=== PATIENT | female | born 1995 | race Caucasian/White ===

== ENCOUNTER 2023-06-28 13:06 | Emergency (ER) | payer SELFPAY | END 2023-06-28 14:40 | disposition left against medical advice (07) | LOC: ER 13:06 | DX: R10.9 Unspecified abdominal pain (principal); M54.9 Dorsalgia, unspecified; Z53.21 Procedure and treatment not carried out due to patient leaving prior to being seen by health care provider ==

== ENCOUNTER 2023-11-23 14:39 | Emergency (ER) | payer BC ==
[~2023-11-23] VITALS: Ht 162.6 cm; Wt 63.0 kg
[2023-11-23 14:40] VITALS: TEMP 97.4
[2023-11-23] MEDS: normal saline 1000ml 1,000 ML IV ONE (16:00)
[2023-11-23] MEDS: metoclopramide 5 mg/ml inj IV ONE (16:00)
[2023-11-23] MEDS: diphenhydrAMINE 50 mg/ml inj IV ONE (16:00)
[2023-11-23 16:18] LABS: BASOPHILS # (AUTO) 0.1 X10'3 (0-0.2); BASOPHILS % (AUTO) 0.7 % (0-1); EOSINOPHILS # (AUTO) 0.1 X10'3 (0-0.9); EOSINOPHILS % (AUTO) 0.6 % (0-6); HEMATOCRIT 44.3 % (35.0-45.0); HEMOGLOBIN 14.7 g/dl (12.0-16.0); LYMPHOCYTES # (AUTO) 1.4 X10'3 (1.1-4.8); LYMPHOCYTES % (AUTO) 12.7 % (21-51); MEAN CORPUSCULAR HEMOGLOBIN 27.5 PG (27.0-31.0); MEAN CORPUSCULAR HGB CONC 33.1 g/dL (33.0-36.5); MEAN CORPUSCULAR VOLUME 82.9 FL (78-98); MEAN PLATELET VOLUME 7.9 FL (7.4-10.4); MONOCYTES # (AUTO) 0.7 X10'3 (0-0.9); MONOCYTES % (AUTO) 6.3 % (2-12); NEUTROPHILS # (AUTO) 8.9 X10'3 (1.8-7.7); NEUTROPHILS % (AUTO) 79.7 % (42-75); PLATELET COUNT 339 X10'3 (140-440); RED BLOOD COUNT 5.35 X10'6 (4.20-5.60); RED CELL DISTRIBUTION WIDTH 14.3 % (11.5-14.5); WHITE BLOOD COUNT 11.2 X10'3 (4.5-11.0)
[2023-11-23 16:43] LABS: ALANINE AMINOTRANSFERASE 42 U/L (12-78); ALBUMIN 3.8 G/DL (3.4-5.0); ALBUMIN/GLOBULIN RATIO 0.8 (1.1-1.5); ALKALINE PHOSPHATASE 78 IU/L (46-116); ANION GAP 14 (8-16); ASPARTATE AMINO TRANSFERASE 27 U/L (10-37); BILIRUBIN,TOTAL 0.6 MG/DL (0.1-1.0); BLOOD UREA NITROGEN 10 MG/DL (7-18); BUN/CREATININE RATIO 14.3 (10.0-20.0); CALCIUM 9.8 MG/DL (8.5-10.1); CHLORIDE 100 MMOL/L (99-107); GLUCOSE 90 MG/DL (70-104); POTASSIUM 3.3 MMOL/L (3.5-5.1); SODIUM 139 MMOL/L (135-145); TOTAL PROTEIN 8.4 G/DL (6.4-8.2); eCRCL 103 ML/MIN; eGFR > 90 ML/MIN
[2023-11-23 17:03] LABS: BETA HCG,QUANTITATIVE 139776 mIU/ml
[2023-11-23] MEDS ORDERED: SCOP1PAT11 TOP (17:18)
[2023-11-23] MEDS ORDERED: METO-292 PO (17:18)
[2023-11-23] MEDS ORDERED: DIPH25CA83 PO (17:18)
[2023-11-23 17:39] VITALS: BP 128/87; PULSE 80; RESP 16; O2SAT 99
== END 2023-11-23 17:44 | disposition home or self-care (01) ==
LOC: ER 14:39
DX: O21.0 Mild hyperemesis gravidarum (principal); Z3A.01 Less than 8 weeks gestation of pregnancy
CPT/HCPCS: 36415; 80053; 84702; 85025; 96361; 96374; 96375; 99284; J1200; J2765; J7030

== ENCOUNTER 2023-11-25 10:10 | Emergency (ER) | payer BC ==
[~2023-11-25] VITALS: Ht 157.5 cm; Wt 67.2 kg
[~2023-11-25 10:10] MED LIST: DIPH25CA83 PO; METO-292 PO; SCOP1PAT11 TOP
[2023-11-25 10:13] VITALS: TEMP 97.2
[2023-11-25 10:40] LABS: BILIRUBIN,URINE SMALL (Neg); CLARITY,URINE SLIGHTLY CLOUDY (Clear); COLOR,URINE YELLOW (Yellow); GLUCOSE, URINE NEGATIVE (Neg); KETONES,URINE >=80 mg/dl (Neg); LEUKOCYTE ESTERASE ,URINE SMALL (Neg); NITRITES, URINE NEGATIVE (Neg); OCCULT BLOOD,URINE NEGATIVE (Neg); PROTEIN,URINE TRACE mg/dl (Neg)
[2023-11-25 10:42] LABS: UA COLLECTION TYPE CLN CATCH MIDSTREAM
[2023-11-25 10:51] LABS: RBC,URINE NONE SEEN /HPF (0-2); SQUAMOUS EPITHELIAL CELL,UR MANY /LPF (FEW)
[2023-11-25 10:52] LABS: BACTERIA,URINE 2+ /HPF (Neg)
[2023-11-25 10:53] LABS: ALBUMIN 3.9 G/DL (3.4-5.0); ANION GAP 17 (8-16); BLOOD UREA NITROGEN 9 MG/DL (7-18); BUN/CREATININE RATIO 14.1 (10.0-20.0); CALCIUM 9.4 MG/DL (8.5-10.1); CHLORIDE 100 MMOL/L (99-107); CREATININE 0.64 MG/DL (0.40-0.90); GLUCOSE 84 MG/DL (70-104); LIPASE 41 U/L (16-77); POTASSIUM 3.4 MMOL/L (3.5-5.1); SODIUM 139 MMOL/L (135-145); TOTAL CARBON DIOXIDE 21.8 MMOL/L (24-32); eCRCL 104 ML/MIN; eGFR > 90 ML/MIN
[2023-11-25 10:58] LABS: BASOPHILS % (AUTO) 0.3 % (0-1); EOSINOPHILS % (AUTO) 0.4 % (0-6); HEMATOCRIT 43.6 % (35.0-45.0); HEMOGLOBIN 14.7 g/dl (12.0-16.0); LYMPHOCYTES # (AUTO) 1.1 X10'3 (1.1-4.8); LYMPHOCYTES % (AUTO) 10.6 % (21-51); MEAN CORPUSCULAR HEMOGLOBIN 28.1 PG (27.0-31.0); MEAN CORPUSCULAR HGB CONC 33.7 g/dL (33.0-36.5); MEAN CORPUSCULAR VOLUME 83.4 FL (78-98); MEAN PLATELET VOLUME 8.3 FL (7.4-10.4); MONOCYTES # (AUTO) 0.5 X10'3 (0-0.9); MONOCYTES % (AUTO) 4.9 % (2-12); NEUTROPHILS # (AUTO) 8.4 X10'3 (1.8-7.7); NEUTROPHILS % (AUTO) 83.8 % (42-75); PLATELET COUNT 326 X10'3 (140-440); RED BLOOD COUNT 5.23 X10'6 (4.20-5.60); RED CELL DISTRIBUTION WIDTH 14.1 % (11.5-14.5); WHITE BLOOD COUNT 10.1 X10'3 (4.5-11.0)
[2023-11-25] MEDS: normal saline 1000ML IV soln IVB ONE (11:30)
[2023-11-25] MEDS: metoclopramide 5 mg/ml inj IV ONE (11:30)
[2023-11-25] MEDS: diphenhydrAMINE 50 mg/ml inj IV ONE (11:30)
[2023-11-25] MEDS: potassium Cl 20 mEq SR tablet PO STA (11:31)
[2023-11-25] MEDS ORDERED: DOXY1TAB3 PO (12:34)
[2023-11-25] MEDS ORDERED: pyridoxine 50mg tablet PO SCH (12:50)
[2023-11-25] MEDS: pyridoxine 50mg tablet PO ONE (12:55)
[2023-11-25 13:00] VITALS: BP 118/79; PULSE 88; RESP 16; O2SAT 98
== END 2023-11-25 13:02 | disposition home or self-care (01) ==
LOC: ER 10:10
DX: O21.0 Mild hyperemesis gravidarum (principal); Z3A.00 Weeks of gestation of pregnancy not specified; Z79.899 Other long term (current) drug therapy
CPT/HCPCS: 36415; 80048; 81001; 83690; 84484; 85025; 96361; 96374; 96375; 99284; J1200; J2765; J7030